=== PATIENT | female | born 1990 | race Caucasian/White ===

== ENCOUNTER 2022-01-07 09:24 | Inpatient (IN) ==
[2022-01-07] MEDS ORDERED: Ringers Solution, Lactated 1,000 ML ONE (09:41)
[2022-01-07] MEDS: Ringers Solution, Lactated 1,000 ML IVC SCH ×2 (09:45→10:16)
[2022-01-07] MEDS ORDERED: Metoclopramide 10 MG/2 ML VIAL IVP PRN ×2 (10:02→14:08)
[2022-01-07] MEDS ORDERED: *HR* Nalbuphine 10 MG/ML AMPUL IV PRN (10:02)
[2022-01-07] MEDS ORDERED: Ondansetron 4 MG/2 ML VIAL IVP PRN ×3 (10:02→14:08)
[2022-01-07] MEDS ORDERED: Naloxone 0.4 MG/ML INJ IVP PRN ×2 (10:02→14:08)
[2022-01-07] MEDS ORDERED: Lidocaine 1% 20 ML MDV INFILT PRN (10:02)
[2022-01-07] MEDS ORDERED: Famotidine 20 MG/2 ML VIAL IVP PRN (10:02)
[2022-01-07] MEDS ORDERED: Azithromycin 500 MG in 0.9 % Sodium Chloride 250 ML IVPB PRN (10:02)
[2022-01-07] MEDS ORDERED: Penicillin G Potassium 5,000,000 UNIT in 0.9 % Sodium Chloride Mini Bag 100 ML IVPB ONE (10:04)
[2022-01-07 10:28] LABS: Basophils % 0.2 %; Eosinophils % 0.2 %; Hematocrit 39.1 % (35.3-44.9); Hemoglobin 13.3 g/dL (11.5-15.4); Immature Granulocytes % 0.4 % (0-4); Lymphocytes # 1.6 K/mcL (0.6-4.6); Lymphocytes % 10.8 %; Mean Corpuscular Hemoglobin 29.5 pg (28.0-33.3); Mean Corpuscular Volume 86.7 fL (83.0-100.0); Mean Platelet Volume 11.1 fL (9.4-12.4); Monocytes # 0.6 K/mcL (0.0-1.3); Neutrophils # 12.6 K/mcL (1.6-8.9); Platelet Count 301 K/mcL (140-400); Red Blood Count 4.51 M/mcL (3.82-4.97); Red Cell Distribution Width 13.5 % (11.5-14.5); Segmented Neutrophils % 84.4 %; White Blood Count 14.9 K/mcL (4.3-11.1)
[2022-01-07] MEDS ORDERED: Acetaminophen IV 1,000 MG/100 ML BAG IVPB ONE (11:23)
[2022-01-07] MEDS ORDERED: Ketorolac 30 MG/ML VIAL ONE (11:24)
[2022-01-07] MEDS ORDERED: Ondansetron 4 MG/2 ML VIAL ONE (11:24)
[2022-01-07] MEDS ORDERED: *HR* Succinylcholine 200 MG/10 ML VIAL IVP ONE (11:24)
[2022-01-07] MEDS ORDERED: *HR* Meperidine 25 MG/ML SYRINGE IVP PRN (11:35)
[2022-01-07] MEDS ORDERED: Promethazine 6.25 MG in Water for inj. (sterile) 20 ML IVPB PRN (11:35)
[2022-01-07] MEDS ORDERED: *HR* FentaNYL (PF) 100 MCG/2 ML VIAL ONE ×2 (11:54→11:58)
[2022-01-07] MEDS: *HR* HYDROmorphone PF 0.5 MG/0.5 ML SYRINGE IVP PRN ×3 (12:50→13:41)
[2022-01-07] MEDS ORDERED: Penicillin G Potassium 2,500,000 UNIT/105 ML MLS IVPB SCH (14:00)
[2022-01-07] MEDS ORDERED: OXYTOCIN/RINGERS LACTATE 10 UNIT/166.6 ML BAG IVC ONE ×2 (14:08→15:28)
[2022-01-07] MEDS ORDERED: *HR* HYDROmorphone PCA *PREMADE* 20 MG/1MG/ML (20mL) PCA VIAL IVC PRN (14:08)
[2022-01-07] MEDS ORDERED: Rho Immune Globulin 1,500 UNIT SYRINGE IM ONE (14:08)
[2022-01-07] MEDS ORDERED: Simethicone 80 MG TAB.CHEW PO PRN (14:08)
[2022-01-07] MEDS ORDERED: *HR* OxyCODONE Immed Rel 5 MG TABLET PO PRN (14:08)
[2022-01-07] MEDS ORDERED: Ringers Solution, Lactated 1,000 ML IVC SCH (14:08)
[2022-01-07] MEDS: Ibuprofen 600 MG TABLET PO SCH (16:02)
[2022-01-07] MEDS: cephALEXin 500 MG CAPSULE PO SCH ×2 (16:02→23:22)
[2022-01-07] MEDS ORDERED: *HR* OxyCODONE/APAP 5/325 TABLET PO PRN (20:29)
[2022-01-07] MEDS: Acetaminophen 325 MG TABLET PO SCH (23:22)
[2022-01-08] MEDS: Acetaminophen 325 MG TABLET PO SCH ×3 (00:29→08:50)
[2022-01-08] MEDS: Ibuprofen 600 MG TABLET PO SCH ×3 (03:16→12:02)
[2022-01-08 04:49] LABS: Basophils % 0.1 %; Eosinophils % 0.1 %; Hematocrit 30.2 % (35.3-44.9); Immature Granulocytes % 0.3 % (0-4); Lymphocytes # 1.6 K/mcL (0.6-4.6); Lymphocytes % 10.6 %; Mean Corpuscular HGB Conc 33.8 g/dL (31.6-35.5); Mean Corpuscular Hemoglobin 29.5 pg (28.0-33.3); Mean Corpuscular Volume 87.3 fL (83.0-100.0); Mean Platelet Volume 11.1 fL (9.4-12.4); Monocytes % 6.5 %; Neutrophils # 12.7 K/mcL (1.6-8.9); Platelet Count 258 K/mcL (140-400); Red Blood Count 3.46 M/mcL (3.82-4.97); Red Cell Distribution Width 13.4 % (11.5-14.5); Segmented Neutrophils % 82.4 %; White Blood Count 15.4 K/mcL (4.3-11.1)
[2022-01-08 04:55] LABS: Hemoglobin 10.2 g/dL (11.5-15.4)
[2022-01-08 07:02] VITALS: BP 107/65; PULSE 74; TEMP 97.8; O2SAT 97
[2022-01-08] MEDS: cephALEXin 500 MG CAPSULE PO SCH (08:50)
[2022-01-08] MEDS ORDERED: Prenatal Vit/FA 1 EACH TABLET PO SCH (09:00)
== END 2022-01-08 15:15 | disposition home or self-care (01) | DRG 788 ==
LOC: 1NENULAB 09:24 → 1NENUOBS 14:41
PROVIDERS: ADMIT Advanced Practice Midwife; ATTEND Advanced Practice Midwife